=== PATIENT | female | born 1995 | race Caucasian/White ===

== ENCOUNTER 2016-09-26 18:32 | Emergency (ER) | payer OTHER ==
[~2016-09-26] VITALS: Ht 154.9 cm; Wt 56.3 kg
[2016-09-26 19:18] VITALS: BP 131/77
--- NOTE | 2016-09-26 20:34 | NUR ---
PATIENT PRESENTS TO ED WITH C/O AB, PELVIC PAIN AND CONSTIPATION X 1 WEEK, WORSENING X 4 DAYS GO . PT STATES SHE DOES NOT HAVE ANY DIFFICULTY OR BURNING SENSATION WHEN URINATING BUT DOES FEEL CONSTIPATED, SAYS SHE IS ABLE TO HAVE SMALL BOWEL MOVEMENT BUT STILL FEELS LIKE ITS NOT ENOUGH PER PT . DENIES N/V/D; SKIN IS PINK/WARM/DRY; AAOX4 WITH EVEN AND STEADY GAIT; LUNGS CLEAR BL; HR EVEN AND REGULAR; PT DENIES ANY FEVER, CP, SOB, OR COUGH AT THIS TIME; PATIENT STATES PAIN OF 9/10 AT THIS TIME; VSS; PATIENT POSITIONED FOR COMFORT; HOB ELEVATED; BEDRAILS UP X2; BED DOWN. ER MD MADE AWARE OF PT STATUS.
--- NOTE | 2016-09-26 20:34 | NUR ---
PT TAKEN TO BED 3
--- NOTE | 2016-09-26 20:36 | NUR ---
Dr. Pantoja evaluating patient at bedside.
--- NOTE | 2016-09-26 21:52 | NUR ---
Patient discharged with v/s stable. Written and verbal after care instructions given and explained. Patient alert, oriented and verbalized understanding of instructions. Ambulatory with steady gait. All questions addressed prior to discharge. ID band removed. Patient advised to follow up with PMD. Rx of BENTYL 20MG AND DIFLUCAN 150MG given. Patient educated on indication of medication including possible reaction and side effects. Opportunity to ask questions provided and answered.
[2016-09-26 21:53] VITALS: BP 127/81
== END 2016-09-26 21:52 | disposition home or self-care (01) ==
LOC: MED 18:32
DX: B37.3 Candidiasis of vulva and vagina (principal); R10.30 Lower abdominal pain, unspecified

== ENCOUNTER 2016-11-08 20:16 | Emergency (ER) | payer OTHER ==
[~2016-11-08] VITALS: Ht 157.5 cm; Wt 54.4 kg
[2016-11-08 20:27] VITALS: BP 127/73
--- NOTE | 2016-11-08 21:25 | NUR ---
Patient ambulated to bed 04.
--- NOTE | 2016-11-08 21:30 | NUR ---
20Y/F PATIENT PRESENTS TO ED WITH C/O DYSURIA X 7 WKS. PT STATES PAIN WHEN URINATE X 7 WKS AND ABDOMINAL DISTRESS. DENIES N/V/D; SKIN IS PINK/WARM/DRY; AAOX4 WITH EVEN AND STEADY GAIT; LUNGS CLEAR BL; HR EVEN AND REGULAR; PT DENIES ANY FEVER, CP, SOB, OR COUGH AT THIS TIME; PATIENT STATES PAIN OF 9/10 AT THIS TIME; VSS; PATIENT POSITIONED FOR COMFORT; HOB ELEVATED; BEDRAILS UP X2; BED DOWN. ER MD MADE AWARE OF PT STATUS.
[2016-11-08 22:48] LABS: APPEARANCE,URINE SL CLOUDY (CLEAR); BILIRUBIN,URINE NEGATIVE (NEGATIVE); BLOOD, URINE 2+ (NEGATIVE); COLOR,URINE YELLOW (YELLOW); LEUKOCYTE ESTERASE ,URINE 1+ (NEGATIVE); NITRITE, URINE NEGATIVE (NEGATIVE); PROTEIN,URINE NEGATIVE (NEGATIVE); UGLUCOSE NEGATIVE (NEGATIVE); UROBILINOGEN,URINE 0.2 EU/dL (0.2 - 1)
[2016-11-08 23:05] LABS: HEMATOCRIT 40.4 % (36-48); HEMOGLOBIN 13.6 g/dL (12.0-16.0); MEAN CORPUSCULAR HEMOGLOBIN 31 pg (27-31); MEAN CORPUSCULAR HGB CONC 34 g/dL (33-37); MEAN CORPUSCULAR VOLUME 93 fL (80-94); PLATELET COUNT (AUTO) 231 K/uL (140-450); RED BLOOD CELL COUNT(AUTO) 4.35 MIL/uL (4.20-5.40); RED CELL DISTRIBUTION WIDTH 11.7 % (11.6-13.7); WHITE BLOOD COUNT (AUTO) 4.6 K/uL (4.5-11.0)
[2016-11-08 23:07] LABS: BACTERIA,URINE 2+ /HPF (None Seen); YEAST,URINE Few /HPF (None Seen)
[2016-11-08 23:24] LABS: ALBUMIN 4.1 g/dL (3.4-5.0); ANION GAP 12.4 (8-16); CARBON DIOXIDE 28.2 mmol/L (21-32); CREATININE 0.9 mg/dL (0.6-1.3); POTASSIUM 3.6 mmol/L (3.5-5.1); TOTAL BILIRUBIN 0.3 mg/dL (0.0-1.0); TOTAL PROTEIN, SERUM 7.9 g/dL (6.4-8.2)
[2016-11-08 23:25] LABS: BAND % (MANUAL) 0 % (0-8); EOSINOPHILS % (MANUAL) 1 % (0-4); LYMPHOCYTES % (MANUAL) 67 % (20-46); MONOCYTES % (MANUAL) 10 % (5-12); NEUTROPHILS % (MANUAL) 22 (43-65)
--- NOTE | 2016-11-09 00:02 | NUR ---
Dr. Zaman evaluating patient at bedside.
--- NOTE | 2016-11-09 01:02 | NUR ---
Patient appears to be resting comfortably in bed. Vital Signs within normal limits. Respirations even and unlabored.
[2016-11-09] MEDS ORDERED: NACL 0.9% 1,000 ML IV ONE (01:15)
[2016-11-09] MEDS ORDERED: LEVOFLOXACIN 500 MG/D5W PREMIX 100 ML IV ONE (01:15)
[2016-11-09] MEDS ORDERED: KETOROLAC 30 MG/ML VIAL IVP ONE (01:15)
[2016-11-09] MEDS ORDERED: PHENAZOPYRIDINE 100 MG TAB PO ONE (01:15)
--- NOTE | 2016-11-09 01:25 | NUR ---
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
--- NOTE | 2016-11-09 03:30 | NUR ---
Patient discharged with v/s stable. Written and verbal after care instructions given and explained. Patient alert, oriented and verbalized understanding of instructions. Ambulatory with to car. All questions addressed prior to discharge. ID band removed. Patient advised to follow up with PMD. Rx of CIPRO 500 MG, PYRIDIUM 200 MG given. Patient educated on indication of medication including possible reaction and side effects. Opportunity to ask questions provided and answered.
[2016-11-09 03:31] VITALS: BP 102/60
[2016-11-11 13:40] LABS: CHLAMYDIA TRACHOMATIS AMP DNA POSITIVE (NEGATIVE)
== END 2016-11-09 03:30 | disposition home or self-care (01) ==
LOC: MED 20:16
DX: R30.9 Painful micturition, unspecified (principal)
CPT/HCPCS: 36415; 80053; 81001; 81025; 85025; 87086; 87210; 96365; 96375; 99284; J1885; J1956; J7030; 87491